=== PATIENT | female | born 1935 | race Caucasian/White ===

== ENCOUNTER 2019-12-18 22:03 | Inpatient (IN) | payer MEDICARE, BC ==
[~2019-12-18] VITALS: Ht 160 cm; Wt 49.5 kg
[2019-12-18] MEDS ORDERED: IV NORMAL SALINE 1000 ML BAG IV ONE (22:30)
[2019-12-18] MEDS ORDERED: CEFEPIME HCL 1 G in IV DEXTROSE 5% 50 ML IV ONE (22:30)
[2019-12-18] MEDS ORDERED: VANCOMYCIN IV 1,000 MG in IV DEXTROSE 5% 250 ML IV ONE (22:30)
[2019-12-18] MEDS ORDERED: CEFEPIME HCL 1 G VIAL ONE (22:36)
[2019-12-18 22:54] LABS: BASOPHILS % (AUTO) 0.4 % (0.0-2.0); EOSINOPHILS % (AUTO) 3.5 % (0.0-7.0); HEMATOCRIT 26.1 % (31.2-41.9); HEMOGLOBIN 8.6 g/dL (10.9-14.3); LYMPHOCYTES # (AUTO) 0.5 K/uL (20.0-40.0); LYMPHOCYTES % (AUTO) 67.8 % (20.5-51.5); MEAN CORPUSCULAR HEMOGLOBIN 25.5 uug (24.7-32.8); MEAN CORPUSCULAR HGB CONC 33 g/dL (32.3-35.6); MEAN CORPUSCULAR VOLUME 77.2 fL (75.5-95.3); MONOCYTES # (AUTO) 0.1 K/uL (2.0-10.0); MONOCYTES % (AUTO) 18.9 % (0.0-11.0); NEUTROPHILS # (AUTO) 0.1 K/uL (1.8-8.9); NEUTROPHILS % (AUTO) 9.4 % (38.5-71.5); RED BLOOD CELL COUNT(AUTO) 3.38 MIL/uL (3.63-4.92)
[2019-12-18] MEDS ORDERED: ACETAMINOPHEN 650 MG SUPP.RECT RC ONE (23:00)
[2019-12-18 23:04] LABS: *BILIRUBIN,URIN NEGATIVE (NEGATIVE); *BLOOD, URINE NEGATIVE (NEGATIVE); *COLOR,URINE YELLOW (YELLOW); *KETONES,URINE NEGATIVE (NEGATIVE); *UROBILINOGEN,URINE 0.2 E.U./dl (NORMAL); LEUKOCYTE ESTERASE ,URINE 1+ (NEGATIVE); NITRITE, URINE NEGATIVE (NEGATIVE); PH,URINE 5.5 (5.0-8.0); UGLUCOSE NEGATIVE (NEGATIVE)
[2019-12-18] MEDS ORDERED: VANCOMYCIN IV 200 ML ONE (23:09)
[2019-12-18 23:20] LABS: *CLARITY,URINE HAZY (CLEAR)
[2019-12-18 23:23] LABS: BACTERIA,URINE MODERATE /HPF (NONE SEEN); RBC,URINE 0-3 /HPF (0-3)
[2019-12-18 23:24] LABS: SQUAMOUS EPITHELIAL CELL,UR FEW /HPF (NONE SEEN)
[2019-12-18 23:28] LABS: BILIRUBIN,TOTAL 0.7 mg/dL (0.2-1.0); CREATININE 0.9 mg/dL (0.6-1.3); POTASSIUM 4.2 mmol/L (3.5-5.1); TOTAL PROTEIN, SERUM 4.7 g/dL (6.4-8.2)
[2019-12-18] MEDS ORDERED: ACETAMINOPHEN 325 MG TABLET PO PRN (23:30)
[2019-12-18] MEDS ORDERED: Z GUARD REMEDY PASTE 57 GM TUBE TOP PRN (23:30)
[2019-12-18] MEDS ORDERED: MAGNESIUM HYDROXIDE 30 ML LIQUID UDC PO PRN (23:30)
[2019-12-18] MEDS ORDERED: ONDANSETRON 4 MG/2 ML VIAL IV PRN (23:30)
[2019-12-18] MEDS ORDERED: ATEN25TA PO (23:40)
[2019-12-18] MEDS ORDERED: IRBE300T19 PO (23:40)
[2019-12-18] MEDS ORDERED: DIGO250T PO (23:40)
[2019-12-18] MEDS ORDERED: HYDR12.55 PO (23:40)
[2019-12-18] MEDS ORDERED: GABA-532 PO (23:40)
[2019-12-18] MEDS ORDERED: ATOR20TA PO (23:40)
[2019-12-18] MEDS ORDERED: OXCA300T15 PO (23:40)
[2019-12-18] MEDS ORDERED: ASPI-1420 PO (23:40)
[2019-12-18] MEDS ORDERED: AMLO2.5T4 PO (23:40)
[2019-12-18 23:49] LABS: WHITE BLOOD COUNT (AUTO) 0.8 K/uL (3.8-11.8)
[2019-12-18 23:50] LABS: PLATELET COUNT (AUTO) 47 K/uL (179-408)
[2019-12-19] MEDS ORDERED: ASPIRIN 81 MG TAB.CHEW PO ONE
[2019-12-19] MEDS ORDERED: ASPIRIN 81 MG TAB.CHEW ONE (02:12)
[2019-12-19 03:15] LABS: LYMPHOCYTES % (MANUAL) 67 % (20-40); METAMYELOCYTES % 1 % (0-1); MONOCYTES % (MANUAL) 16 % (2-10); MYELOCYTES % 1 % (0-0); NEUTROPHILS % (MANUAL) 11 % (42-75)
[2019-12-19] MEDS: IV NS 1000 ML 1,000 ML IV PRN (03:51)
[2019-12-19 04:30] VITALS: BP 115/46
[2019-12-19] MEDS ORDERED: CEFEPIME HCL 1 G VIAL ONE ×2 (05:27→21:44)
[2019-12-19] MEDS: CEFEPIME HCL 1 G in IV DEXTROSE 5% 50 ML IV SCH ×3 (05:47→22:10)
[2019-12-19 07:39] LABS: THYROID STIMULATING HORMONE 0.888 mIU/mL (0.358-3.740)
[2019-12-19 08:10] LABS: CREATININE 0.9 mg/dL (0.6-1.3); MAGNESIUM 1.3 mg/dL (1.8-2.4); PHOSPHOROUS 2.1 mg/dL (2.5-4.9); POTASSIUM 3.1 mmol/L (3.5-5.1)
[2019-12-19 08:12] LABS: BASOPHILS % (AUTO) 0.5 % (0.0-2.0); HEMATOCRIT 22.7 % (31.2-41.9); HEMOGLOBIN 7.5 g/dL (10.9-14.3); LYMPHOCYTES # (AUTO) 0.5 K/uL (20.0-40.0); LYMPHOCYTES % (AUTO) 51.5 % (20.5-51.5); MEAN CORPUSCULAR HEMOGLOBIN 25.1 uug (24.7-32.8); MEAN CORPUSCULAR HGB CONC 33 g/dL (32.3-35.6); MEAN CORPUSCULAR VOLUME 76.6 fL (75.5-95.3); MONOCYTES # (AUTO) 0.2 K/uL (2.0-10.0); MONOCYTES % (AUTO) 21.9 % (0.0-11.0); NEUTROPHILS # (AUTO) 0.2 K/uL (1.8-8.9); NEUTROPHILS % (AUTO) 25.1 % (38.5-71.5); RED BLOOD CELL COUNT(AUTO) 2.96 MIL/uL (3.63-4.92)
[2019-12-19 08:20] LABS: PLATELET COUNT (AUTO) 44 K/uL (179-408)
[2019-12-19] MEDS ORDERED: POTASSIUM PHOSPHATE MM 15 MMOL in IV NORMAL SALINE 250 ML IV ONE (08:30)
[2019-12-19] MEDS: PANTOPRAZOLE SODIUM 40 MG VIAL IV SCH (08:59)
[2019-12-19] MEDS: POTASSIUM PHOSPHATE MM 7.5 MMOL in IV NORMAL SALINE 97.5 ML IV SCH ×2 (09:52→13:22)
[2019-12-19 11:24] VITALS: BP 121/51
[2019-12-19 11:43] LABS: BAND % (MANUAL) 3 % (0-10); LYMPHOCYTES % (MANUAL) 60 % (20-40); MONOCYTES % (MANUAL) 17 % (2-10); NEUTROPHILS % (MANUAL) 19 % (42-75)
[2019-12-19 11:44] LABS: METAMYELOCYTES % 1 % (0-1)
[2019-12-19] MEDS: MAGNESIUM SULFATE/D5W 100 ML IV SCH ×2 (14:22→15:24)
[2019-12-19 16:00] VITALS: BP 121/44
[2019-12-19] MEDS: VANCOMYCIN IV 1,000 MG in IV DEXTROSE 5% 250 ML IV SCH (19:32)
[2019-12-19 20:04] VITALS: BP 155/60
[2019-12-20 00:02] VITALS: BP 151/52
[2019-12-20 04:04] VITALS: BP 135/74
[2019-12-20] MEDS: IV NS 1000 ML 1,000 ML IV PRN (04:25)
[2019-12-20] MEDS: CEFEPIME HCL 1 G in IV DEXTROSE 5% 50 ML IV SCH ×3 (05:27→21:12)
[2019-12-20 07:37] LABS: CREATININE 0.7 mg/dL (0.6-1.3); POTASSIUM 3.4 mmol/L (3.5-5.1)
[2019-12-20 08:00] VITALS: BP 139/69
[2019-12-20 08:59] LABS: BASOPHILS % (AUTO) 0.9 % (0.0-2.0); EOSINOPHILS % (AUTO) 0.5 % (0.0-7.0); HEMATOCRIT 27.3 % (31.2-41.9); HEMOGLOBIN 8.9 g/dL (10.9-14.3); LYMPHOCYTES # (AUTO) 0.8 K/uL (20.0-40.0); LYMPHOCYTES % (AUTO) 27.5 % (20.5-51.5); MEAN CORPUSCULAR HEMOGLOBIN 25.1 uug (24.7-32.8); MEAN CORPUSCULAR HGB CONC 33 g/dL (32.3-35.6); MEAN CORPUSCULAR VOLUME 76.8 fL (75.5-95.3); MONOCYTES # (AUTO) 0.2 K/uL (2.0-10.0); MONOCYTES % (AUTO) 7.4 % (0.0-11.0); NEUTROPHILS # (AUTO) 1.7 K/uL (1.8-8.9); NEUTROPHILS % (AUTO) 63.7 % (38.5-71.5); RED BLOOD CELL COUNT(AUTO) 3.56 MIL/uL (3.63-4.92); WHITE BLOOD COUNT (AUTO) 2.7 K/uL (3.8-11.8)
[2019-12-20 09:06] LABS: MAGNESIUM 1.9 mg/dL (1.8-2.4); PHOSPHOROUS 2.4 mg/dL (2.5-4.9)
[2019-12-20 09:07] LABS: PLATELET COUNT (AUTO) 41 K/uL (179-408)
[2019-12-20] MEDS: PANTOPRAZOLE SODIUM 40 MG VIAL IV SCH (09:31)
[2019-12-20] MEDS ORDERED: POTASSIUM CHLORIDE 20 MEQ TAB.PRT.SR PO ONE (10:15)
[2019-12-20] MEDS ORDERED: AMLODIPINE 2.5 MG TABLET PO SCH (11:30)
[2019-12-20] MEDS ORDERED: OXCARBAZEPINE 300 MG TABLET PO ONE (11:45)
[2019-12-20 11:47] VITALS: BP 165/72
[2019-12-20] MEDS: ATENOLOL 25 MG TABLET PO SCH (12:26)
[2019-12-20] MEDS: VANCOMYCIN IV 1,000 MG in IV DEXTROSE 5% 250 ML IV SCH (12:37)
[2019-12-20] MEDS ORDERED: GABAPENTIN 300 MG CAPSULE PO SCH (13:00)
[2019-12-20] MEDS ORDERED: GABAPENTIN 100 MG CAPSULE PO SCH (13:00)
[2019-12-20] MEDS ORDERED: GABA600T12 PO ×2 (14:14→14:34)
[2019-12-20] MEDS ORDERED: AMLO10TA59 PO ×2 (14:14→14:36)
[2019-12-20] MEDS ORDERED: OXCA300T15 PO ×2 (14:14→14:33)
[2019-12-20] MEDS ORDERED: AMLO-212 PO (14:33)
[2019-12-20 16:16] VITALS: BP 146/52
[2019-12-20] MEDS ORDERED: NEUTRA PHOS PACKET PO ONE (16:45)
[2019-12-20 17:29] LABS: BAND % (MANUAL) 8 % (0-10); EOSINOPHILS % (MANUAL) 2 % (0-8); LYMPHOCYTES % (MANUAL) 30 % (20-40); MONOCYTES % (MANUAL) 14 % (2-10); NEUTROPHILS % (MANUAL) 46 % (42-75)
[2019-12-20] MEDS: OXCARBAZEPINE 300 MG TABLET PO SCH (17:37)
[2019-12-20] MEDS: GABAPENTIN 300 MG CAPSULE PO SCH (17:37)
[2019-12-20] MEDS: FUROSEMIDE 20 MG/2 ML VIAL IV SCH (21:12)
[2019-12-21] MEDS: IV NS 1000 ML 1,000 ML IV PRN (05:37)
[2019-12-21] MEDS: CEFEPIME HCL 1 G in IV DEXTROSE 5% 50 ML IV SCH ×2 (05:37→14:00)
[2019-12-21 07:02] LABS: BASOPHILS % (AUTO) 0.6 % (0.0-2.0); EOSINOPHILS % (AUTO) 0.3 % (0.0-7.0); HEMATOCRIT 25.7 % (31.2-41.9); HEMOGLOBIN 8.6 g/dL (10.9-14.3); LYMPHOCYTES # (AUTO) 0.7 K/uL (20.0-40.0); LYMPHOCYTES % (AUTO) 16.2 % (20.5-51.5); MEAN CORPUSCULAR HEMOGLOBIN 25.4 uug (24.7-32.8); MEAN CORPUSCULAR HGB CONC 33 g/dL (32.3-35.6); MEAN CORPUSCULAR VOLUME 76.3 fL (75.5-95.3); MONOCYTES # (AUTO) 0.3 K/uL (2.0-10.0); MONOCYTES % (AUTO) 6.1 % (0.0-11.0); NEUTROPHILS # (AUTO) 3.4 K/uL (1.8-8.9); NEUTROPHILS % (AUTO) 76.8 % (38.5-71.5); PLATELET COUNT (AUTO) 55 K/uL (179-408); RED BLOOD CELL COUNT(AUTO) 3.37 MIL/uL (3.63-4.92); WHITE BLOOD COUNT (AUTO) 4.4 K/uL (3.8-11.8)
[2019-12-21 07:16] LABS: BILIRUBIN,TOTAL 0.6 mg/dL (0.2-1.0); CREATININE 0.8 mg/dL (0.6-1.3); MAGNESIUM 1.7 mg/dL (1.8-2.4); PHOSPHOROUS 2.4 mg/dL (2.5-4.9); POTASSIUM 3.3 mmol/L (3.5-5.1); TOTAL PROTEIN, SERUM 4.2 g/dL (6.4-8.2)
[2019-12-21 07:17] LABS: VANCOMYCIN,TROUGH 13.8 ug/mL (12.0-20.0)
[2019-12-21] MEDS: VANCOMYCIN IV 1,000 MG in IV DEXTROSE 5% 250 ML IV SCH (08:57)
[2019-12-21] MEDS ORDERED: AMLODIPINE 10 MG TABLET PO SCH (09:00)
[2019-12-21] MEDS: ATENOLOL 25 MG TABLET PO SCH (09:00)
[2019-12-21] MEDS ORDERED: POTASSIUM CHLORIDE 20 MEQ TAB.PRT.SR PO ONE (09:15)
[2019-12-21] MEDS: GABAPENTIN 300 MG CAPSULE PO SCH ×2 (09:19→13:15)
[2019-12-21] MEDS: PANTOPRAZOLE SODIUM 40 MG VIAL IV SCH (09:20)
[2019-12-21] MEDS: FUROSEMIDE 20 MG/2 ML VIAL IV SCH (09:20)
[2019-12-21] MEDS ORDERED: MAGNESIUM SULFATE/D5W 100 ML IV SCH (10:00)
[2019-12-21] MEDS ORDERED: POTASSIUM PHOSPHATE MM 15 MMOL in IV NORMAL SALINE 250 ML IV ONE (10:00)
[2019-12-21] MEDS: OXCARBAZEPINE 300 MG TABLET PO SCH (11:00)
[2019-12-21] MEDS: MAGNESIUM SULFATE/D5W 100 ML IV SCH ×2 (11:02→12:22)
[2019-12-21 11:34] VITALS: BP 117/44
[2019-12-21] MEDS ORDERED: PANT20TA2 PO (12:35)
[2019-12-21] MEDS ORDERED: LEVO500T90 PO (12:35)
[2019-12-21 12:52] LABS: BAND % (MANUAL) 5 % (0-10); LYMPHOCYTES % (MANUAL) 15 % (20-40); MONOCYTES % (MANUAL) 5 % (2-10); NEUTROPHILS % (MANUAL) 75 % (42-75)
[2019-12-21 15:58] VITALS: BP 131/42
[2019-12-21 16:05] VITALS: BP 123/60
[2019-12-21] MEDS ORDERED: NEUTRA PHOS PACKET PO ONE (16:20)
== END 2019-12-21 16:00 | disposition home or self-care (01) | DRG 871 ==
LOC: ER 22:05 → TELE3 23:55 → MEDSURG3 12-20 08:14
PROVIDERS: ADMIT Internal Medicine; ATTEND Internal Medicine
DX: A41.9 Sepsis, unspecified organism (principal); E43 Unspecified severe protein-calorie malnutrition; G92 Toxic encephalopathy; I21.4 Non-ST elevation (NSTEMI) myocardial infarction; D61.810 Antineoplastic chemotherapy induced pancytopenia; N39.0 Urinary tract infection, site not specified; E87.2 Acidosis; D61.818 Other pancytopenia; D68.69 Other thrombophilia; E22.2 Syndrome of inappropriate secretion of antidiuretic hormone; Z68.1 Body mass index [BMI] 19.9 or less, adult; C84.40 Peripheral T-cell lymphoma, not elsewhere classified, unspecified site; D70.9 Neutropenia, unspecified; R50.81 Fever presenting with conditions classified elsewhere; E78.5 Hyperlipidemia, unspecified; E83.42 Hypomagnesemia; E87.6 Hypokalemia; F03.90 Unspecified dementia, unspecified severity, without behavioral disturbance, psychotic disturbance, mood disturbance, and anxiety; I11.9 Hypertensive heart disease without heart failure; Z85.3 Personal history of malignant neoplasm of breast; Z86.73 Personal history of transient ischemic attack (TIA), and cerebral infarction without residual deficits; T45.1X5A Adverse effect of antineoplastic and immunosuppressive drugs, initial encounter; Y92.009 Unspecified place in unspecified non-institutional (private) residence as the place of occurrence of the external cause; Z79.899 Other long term (current) drug therapy; R62.7 Adult failure to thrive; D69.59 Other secondary thrombocytopenia
CPT/HCPCS: 36415; 70030-TC; 71045; 83605; 83615; 83735; 84100; 84443; 85025; 85730; 86140; 87040; 87086; 87400; 93005; 93307; A4663; C1758; C9113; G0378; J0692; J1940; J3370; J3475; J3490; J7030; J7050; J7060; U0003